=== PATIENT | female | born 1940 | race Caucasian/White ===

== ENCOUNTER 2017-08-19 00:21 | Emergency (ER) | payer MEDICARE, BC ==
[~2017-08-19] VITALS: Ht 154.9 cm; Wt 72.7 kg
[~2017-08-19 00:21] MED LIST: ASPIR-LOW81 MG PO; ASPIRIN 81M81 MG/TA2 PO; BENADRYL25 M2 PO; CALCIUM CARBONATE PO; CARDI-OMEGA1000 MG PO; CENTRUM SILVER1 CTB PO; FISH OIL1 IU PO; GLUCOSAMINE/CHONDROI PO; LIPITOR 40MG TA40 MG PO; LIPITOR40 MG PO; LOPRESSOR 225 MG/TAB PO; LORTAB 5/500 501 TAB PO; MIRALAX PA17 GM/Dose PO; MULTIPLE VITAMI1 CAP PO; NORCO 325 MG-51 TAB PO; PACERONE200 MG PO; PLAVIX 75MG TAB75 MG PO; PRILOTC PO; PROTONIX 40MG T40 MG PO; SEA OMEGA 301 SGL PO; TOPROL XL100 MG PO; TYLENOL EXTRA500 M1 PO; VITAMIN D; VITAMIN D 400400 IU PO; VITAMIN D2400 IU PO
[2017-08-19 00:27] VITALS: BP 130/58; PULSE 71; TEMP 97.7
[2017-08-20] MEDS ORDERED: FLOXIN OTIC DROP5 ML OT (15:39)
[2017-08-20] MEDS ORDERED: COUMADIN 1MG1 MG/TAB PO (15:40)
[2017-08-20] MEDS ORDERED: AMOXICILLIN 8751 TAB PO (15:40)
[2017-08-20] MEDS ORDERED: MELATONIN5 M1 SL (15:41)
[2017-08-20] MEDS ORDERED: LIPITOR20 MG PO (15:41)
[2017-08-20] MEDS ORDERED: PRINIVIL5 MG PO (15:42)
[2017-08-20] MEDS ORDERED: BETAPACE 80MG80 MG PO (15:42)
[2017-08-20] MEDS ORDERED: TESSALON P100 MG/CAP PO (15:43)
[2017-08-20] MEDS ORDERED: CLARITIN 1010 MG/TAB PO (15:44)
== END 2017-08-19 01:31 | disposition left against medical advice (07) ==
LOC: COL.ER 00:21
DX: R10.30 Lower abdominal pain, unspecified (principal)

== ENCOUNTER 2017-08-20 14:55 | Emergency (ER) | payer MEDICARE, BC ==
[~2017-08-20] VITALS: Ht 154.9 cm; Wt 72.7 kg
[2017-08-20 14:59] VITALS: TEMP 98.1
[2017-08-20 15:19] LABS: BASO % 0.4 % (0.0-2.0); EOS # 0.1 (0.0-0.7); EOS % 0.9 % (0-4.0); GRAN # 6.2 (1.4-6.5); GRAN % 57.4 % (42.2-75.2); HEMATOCRIT 42.9 % (37.0-47.0); HEMOGLOBIN 14.6 g/dl (12.5-16.0); LYMPH # 3.1 (1.2-3.4); LYMPH % 28.7 % (20.0-51.0); MEAN CELL VOLUME 87 fl (80.0-100.0); MEAN CORPUSCULAR HEMOGLOBIN 30 pg (27.0-31.0); MEAN CORPUSCULAR HGB CONC 34 g/dl (33.0-37.0); MONO # 1.3 (0.1-0.6); MONO % 12.1 % (1.7-9.3); PLATELET COUNT 287 K/mm3 (130-400); RED BLOOD COUNT 4.94 M/mm3 (4.10-5.30); REDCELL DISTRIBUTION WIDTH-CV 13.3 % (11.5-14.5)
[2017-08-20 15:31] LABS: ALANINE AMINOTRANSFERASE 45 U/L (9-52); ALBUMIN 3.8 gm/dL (3.5-5.0); ALKALINE PHOSPHATASE 125 U/L (50-136); ANION GAP 11 mmol/L (7-16); AST,SGOT 41 U/L (15-37); BILIRUBIN,TOTAL 0.8 mg/dL (0.0-1.0); BLOOD UREA NITROGEN 18 mg/dL (7-17); CARBON DIOXIDE 23 mmol/L (22-30); CHLORIDE 102 mmol/L (98-107); CREATININE, serum 0.81 mg/dL (0.52-1.25); GLUCOSE 120 mg/dL (74-106); INR 2.8 (0.8-3.0); POTASSIUM 4.4 mmol/L (3.4-5.0); PROTHROMBIN TIME 31.6 SECONDS (9.7-12.8); SODIUM 136 mmol/L (137-145); TOTAL PROTEIN 7.3 gm/dL (6.4-8.2)
[2017-08-20] MEDS ORDERED: FLOXIN OTIC DROP5 ML OT (15:39)
[2017-08-20] MEDS ORDERED: AMOXICILLIN 8751 TAB PO (15:40)
[2017-08-20] MEDS ORDERED: COUMADIN 1MG1 MG/TAB PO (15:40)
[2017-08-20] MEDS ORDERED: MELATONIN5 M1 SL (15:41)
[2017-08-20] MEDS ORDERED: LIPITOR20 MG PO (15:41)
[2017-08-20] MEDS ORDERED: PRINIVIL5 MG PO (15:42)
[2017-08-20] MEDS ORDERED: BETAPACE 80MG80 MG PO (15:42)
[2017-08-20] MEDS ORDERED: TESSALON P100 MG/CAP PO (15:43)
[2017-08-20 15:44] LABS: TROPONIN-I < 0.012 ng/mL (0.000-0.034)
[2017-08-20] MEDS ORDERED: CLARITIN 1010 MG/TAB PO (15:44)
[2017-08-20 17:32] VITALS: BP 137/91; PULSE 148
== END 2017-08-20 17:44 | disposition short-term general hospital (02) ==
LOC: COL.ER 14:55
PROVIDERS: Emergency Medicine
DX: I48.91 Unspecified atrial fibrillation (principal); Z79.01 Long term (current) use of anticoagulants; Z79.82 Long term (current) use of aspirin
CPT/HCPCS: J1160; J7030; J7050

== ENCOUNTER 2017-11-04 10:48 | Emergency (ER) | payer MEDICARE, BC ==
[~2017-11-04] VITALS: Ht 160 cm; Wt 75.5 kg
[~2017-11-04 10:48] MED LIST changes: +AMOXICILLIN 8751 TAB PO; +BETAPACE 80MG80 MG PO; +CLARITIN 1010 MG/TAB PO; +COUMADIN 1MG1 MG/TAB PO; +FLOXIN OTIC DROP5 ML OT; +LIPITOR20 MG PO; +MELATONIN5 M1 SL; +PRINIVIL5 MG PO; +TESSALON P100 MG/CAP PO
[2017-11-04 10:57] VITALS: TEMP 98.2
[2017-11-04 12:22] VITALS: BP 140/61; PULSE 62
== END 2017-11-04 12:22 | disposition home or self-care (01) ==
LOC: COL.ER 10:48
DX: G43.909 Migraine, unspecified, not intractable, without status migrainosus (principal); Z79.82 Long term (current) use of aspirin; Z79.02 Long term (current) use of antithrombotics/antiplatelets